=== PATIENT | female | born 1945 | race Caucasian/White ===

== ENCOUNTER 2016-07-22 10:47 | Emergency (ER) | payer MEDICARE, OTHER ==
[~2016-07-22] VITALS: Ht 162.6 cm; Wt 59.0 kg
[~2016-07-22 10:47] MED LIST: ALPR0.25 PO; ASPI325T PO; CALCCHW25 PO; DILT240C7 PO; HYDR-3534 PO; LIPI20TA OR; MULT-65 PO; NITR2.5C SL; RAMI10CA PO; RIVA10 PO; ZETI10TA5 OR; [UNRECOGNIZED DRUG - CODE] OR
[2016-07-22 10:48] VITALS: BP 173/73; PULSE 72; RESP 16; TEMP 97.9; O2SAT 96
[2016-07-22] MEDS ORDERED: NITR1SUB2 SL (11:15)
[2016-07-22] MEDS ORDERED: ZETI10TA5 PO (11:15)
[2016-07-22] MEDS ORDERED: ALPR0.25 PO (11:15)
[2016-07-22] MEDS ORDERED: DILT180C56 PO (11:15)
[2016-07-22] MEDS ORDERED: MULTTAB67 PO (11:15)
[2016-07-22] MEDS ORDERED: HYDR-3533 PO (11:15)
[2016-07-22] MEDS ORDERED: CALCCHW25 CHEW (11:15)
[2016-07-22] MEDS ORDERED: RAMI10CA PO (11:15)
[2016-07-22] MEDS ORDERED: ATOR20TA15 PO (11:15)
[2016-07-22] MEDS ORDERED: LACTCAP8 PO (11:15)
[2016-07-22] MEDS ORDERED: HYDR-3534 PO (11:15)
[2016-07-22] MEDS ORDERED: ASPI325T PO (11:15)
--- NOTE | 2016-07-22 11:35 | PD ---
HPI Chief Complaint: Pain: Acute or Chronic Time Seen by Provider: 11:31 Travel History International Travel<30 days: No Contact w/Intl Traveler<30days: No Traveled to known affect area: No History of Present Illness HPI 70-year-old female with a history of CAD presents to the emergency department for evaluation of right elbow pain for 4 days. Patient states that this past Wednesday she accidentally tripped over a step and landed on her right hip and right elbow. States that she was seen at [facility] immediately following the fall and had x-rays of her right knee, right hip and right elbow. States that she was told all of her x-rays were negative. States that she did have swelling in the right elbow but minimal pain. States that 2 days ago she started using her elbow more and the pain in the elbow worsened and has continued to be painful since then. States that she does still have swelling over the right elbow. States she has decreased range of motion in the right elbow. Pain is aggravated with movement and palpation. Denies any alleviating factors. States she has been taking Tylenol during the day for her pain and has taken one Lortab at night for her pain. She denies any numbness or tingling, weakness, fever, chills, nausea, vomiting, lightheadedness or dizziness. Denies anticoagulation. No other complaints. PFSH Past Medical History Hx Anticoagulant Therapy: Yes (xeralto) Cancer: Yes (breast) Cardiac Catheterization: Yes Cardiovascular Problems: Yes (open heart sx) High Cholesterol: Yes Chest Pain: Yes Coronary Artery Disease: Yes Respiratory: Yes (hx 4 rib fx L with pneumothorax) ?: Not Past Surgical History Cardiac Surgery: Yes (CABG x 5) Cholecystectomy: Yes Coronary Artery Bypass Graft: Yes Gynecologic Surgery: Yes (LUMPECTOMY) Hysterectomy: Yes Social History Alcohol Use: Yes (2 BHAVESH/DAILY) Tobacco Use: No Substance Use: No Allergies-Medications (Allergen,Severity, Reaction): Coded Allergies: Flexeril (Verified Adverse Reaction, Severe, states gets neuro symptoms, ) Reported Meds & Prescriptions Reported Meds & Active Scripts Active Reported Ramipril 10 Mg Cap 10 Mg PO DAILY Probiotic (Lactobacillus Acidophilus) 1 Cap Cap 1 Cap PO Nitroglycerin SL (Nitroglycerin) 0.3 Mg Subl Unknown Dose SL DIRECTED PRN ONE TABLET UNDER THE TONGUE NEEDED FOR CHEST PAIN, MAY REPEAT EVERY FIVE MINUTES FOR A TOTAL OF 3 DOSES OR CALL 911 IF NO RELIEF Multiple Vitamin 1 Tab 1 Tab PO DAILY Lortab (Hydrocodone-Acetaminophen) 7.5-325 Mg Tab 1 Tab PO Q4H PRN Zetia (Ezetimibe) 10 Mg Tab 10 Mg PO DAILY Diltiazem CD 24 HR 180 Mg Caper 180 Mg PO DAILY Calcium + D & K (Calcium-Vitamins D & K) 500-1,000-40 Mg-Unit-Mcg Chew 1 Tab CHEW BID Atorvastatin (Atorvastatin Calcium) 20 Mg Tab 20 Mg PO DAILY Aspirin 325 Mg Tab 325 Mg PO DAILY Alprazolam 0.25 Mg Tab 0.25 Mg PO DIRECTED PRN Review of Systems Except as stated in HPI: all other systems reviewed are Neg Physical Exam Narrative GENERAL: Well-nourished and well-developed pleasant female patient in no acute distress who is nontoxic appearing. SKIN: Warm and dry. HEAD: Normocephalic and atraumatic. EYES: No injection, drainage, or hyphema noted. PERRLA. EOMI. ENT: No nasal drainage noted. Oropharynx is clear. NECK: Supple and the trachea is midline. CARDIOVASCULAR: Regular rate and rhythm. RESPIRATORY: Breath sounds are equal bilaterally with no accessory muscle use, wheezing, rhonchi, or crackles. GASTROINTESTINAL: Abdomen is soft, non-tender, and nondistended. MUSCULOSKELETAL: Swelling noted over the right elbow with tenderness to palpation. Patient is able to flex and extend the elbow only about 10 in either direction. If she goes any further with range of motion she experiences pain. No obvious deformities, cyanosis, or ecchymosis is present throughout the upper and lower extremities. Patient has full range of motion without any signs of neurovascular compromise. Radial pulses are 2+ bilaterally. Sensation is intact. NEUROLOGICAL: Awake, alert, and oriented. Normal speech and gait. Cranial nerves are grossly intact. Data Data Last Documented VS Vital Signs Date Time Temp Pulse Resp B/P Pulse Ox O2 Delivery O2 Flow Rate FiO2 07/22/16 10:48 97.9 72 16 173/73 96 Room Air Orders Elbow, Complete (4 Vws) (07/22/16 11:22) Ct Elbow W/O Contrast (07/22/16 ) Splint Or Brace Apply/Monitor (07/22/16 13:21) MDM Medical Decision Making Medical Screen Exam Complete: Yes Emergency Medical Condition: Yes Differential Diagnosis Contusion versus fracture versus sprain versus bursitis Narrative Course 70-year-old female presents to the emergency department for evaluation of right elbow pain status post trip and fall that occurred 4 days ago. Patient is afebrile, vital signs are stable. She had x-rays done 4 days ago at another hospital and was told they were negative. Her pain and swelling has persisted prompting her for a return visit to the ED. We'll repeat x-ray imaging. If this is unremarkable the patient will be advised to follow up as an outpatient with her PCP or an orthopedist. X-ray of the right elbow shows mild soft tissue swelling and a few fragments. Radiology is reading this as a negative acute x-ray. Right upper extremity CT is negative for any acute abnormalities or fractures of the elbow, there are a few degenerative ossific fragments but no acute abnormalities. Discussed findings with the patient and family. She will be given a sling for comfort. I discussed with her that she needs to remove her arm from the sling and perform range of motion exercises. She is advised to take NSAIDs for the next several days. Discussed supportive of care. Advised follow-up with her PCP as needed. Patient verbalizes understanding and agreement with treatment plan. I discussed the case with my attending physician Dr. Lovelace who is aware of the patients history, physical examination findings, and treatment plan. Diagnosis Primary Impression: Right elbow pain Referrals: Primary Care Physician Patient Instructions: Elbow Sprain (ED), General Instructions Additional Instructions: Sling for one week. Remove arm from the sling multiple times throughout the day and perform full range of motion exercises Follow-up with your Primary Care Physician. Return to the ED for any acute worsening of symptoms. Med/Other Pt SpecificInfo: No Change to Meds Disposition: 01 DISCHARGE HOME Condition: Stable Letty Yanez July 22, 2016 11:35
--- NOTE | 2016-07-22 11:50 | RADRPT ---
EXAM DATE/TIME: 07/22/2016 11:48 [facility] COMPARISON: No previous studies available for comparison. INDICATIONS : Fell Wednesday landed on elbow, pain with any motion. MEDICAL HISTORY : None. SURGICAL HISTORY : None. ENCOUNTER: Initial ACUITY: 4 - 6 days PAIN SCORE: 9/10 LOCATION: Right elbow FINDINGS: Normal bone density. Mild soft tissue swelling posterior to elbow. No obvious fractures. No effusion. CONCLUSION: Mild soft tissue swelling. Cr Moore MD on July 22, 2016 at 11:47 Board Certified Radiologist. This report was verified electronically.
--- NOTE | 2016-07-22 13:04 | RADRPT ---
EXAM DATE/TIME: 07/22/2016 12:31 [facility] COMPARISON: ELBOW RIGHT COMPLETE (4 VWS), July 22, 2016, 11:48. INDICATIONS : Fell 5 days ago, still complaining of pain RADIATION DOSE: 19.93 CTDIvol (mGy) MEDICAL HISTORY : Cardiovascular disease. Carcinoma, breast. SURGICAL HISTORY : Cholecystectomy. ENCOUNTER: Initial ACUITY: 4 - 6 days PAIN SCALE: 7/10 LOCATION: Right elbow TECHNIQUE: Volumetric scanning of the elbow was performed. Using automated exposure control and adjustment of t he mA and/or kV according to patient size, radiation dose was kept as low as reasonably achievable to obtain optimal diagnostic quality images. FINDINGS: There are well-corticated tiny ossific densities are long lateral joint just proximal to the radiocap itellar articulation. Smooth ossific spur or fragment is present adjacent to the coronoid. There is s mall ossific density in the ulnar trochlear joint. None of these findings appear acute, rather likely sequela of old injuries and arthritic change. There is nothing to suggest acute bony injury. No join t effusion is present. Mineralization is normal. No destructive changes are present. CONCLUSION: No acute bony findings Nick Vasquez MD on July 22, 2016 at 12:57 Board Certified Radiologist. This report was verified electronically.
--- NOTE | 2016-07-22 13:17 | PD ---
Data Data Last Documented VS Vital Signs Date Time Temp Pulse Resp B/P Pulse Ox O2 Delivery O2 Flow Rate FiO2 07/22/16 10:48 97.9 72 16 173/73 96 Room Air Orders Elbow, Complete (4 Vws) (07/22/16 11:22) Ct Elbow W/O Contrast (07/22/16 ) MDM Supervised Visit with ROSHNI: Yes Narrative Course 70 year-old woman, fall about 5 days ago, right lateral elbow pain. Negative x- rays initially. She still having lateral elbow pain, was initially improved but now worsening again over the past several days. Here for repeat evaluation. She is tender over the lateral upper condyle but she doesn't appear to have a lateral epicondylitis. X-ray was negative. Repeat CT was done due to high suspicion for occult fracture. This was negative as well. Recommend outpatient follow-up expect gradual improvement. Harlan Lovelace MD July 22, 2016 13:17
== END 2016-07-22 13:41 | disposition home or self-care (01) ==
LOC: NEPD 10:47
DX: M25.521 Pain in right elbow (principal); I25.10 Atherosclerotic heart disease of native coronary artery without angina pectoris; E78.00 Pure hypercholesterolemia, unspecified; Z79.01 Long term (current) use of anticoagulants; Z95.1 Presence of aortocoronary bypass graft; W01.198D Fall on same level from slipping, tripping and stumbling with subsequent striking against other object, subsequent encounter
CPT/HCPCS: 73080; 73200; 99284

== ENCOUNTER 2016-08-01 10:40 | Emergency (ER) | payer MEDICARE, OTHER ==
[~2016-08-01] VITALS: Ht 162.6 cm; Wt 60.0 kg
[~2016-08-01 10:40] MED LIST changes: +ATOR20TA15 PO; +CALCCHW25 CHEW; -CALCCHW25 PO; +DILT180C56 PO; -DILT240C7 PO; +LACTCAP8 PO; -LIPI20TA OR; -MULT-65 PO; +MULTTAB67 PO; +NITR1SUB2 SL; -NITR2.5C SL; -RIVA10 PO; -ZETI10TA5 OR; +ZETI10TA5 PO; -[UNRECOGNIZED DRUG - CODE] OR
[2016-08-01 10:46] VITALS: BP 118/69; PULSE 85; RESP 15; TEMP 97.9; O2SAT 96
[2016-08-01] MEDS ORDERED: DILT0.05 PO (11:05)
[2016-08-01] MEDS ORDERED: LIPI20TA PO (11:05)
[2016-08-01] MEDS ORDERED: SODIUM CHLOR 0.9% 1000 ML INJ 1,000 ML IV SCH (11:23)
[2016-08-01] MEDS ORDERED: SODIUM CHLORIDE 0.9% FLUSH 10 ML FLUSH IV FLUSH PRN (11:30)
[2016-08-01] MEDS ORDERED: PANTOPRAZOLE SODIUM 40 MG VIAL IVP ONE (11:30)
[2016-08-01] MEDS ORDERED: FAMOTIDINE 20 MG/2 ML VIAL IV PUSH ONE (11:30)
[2016-08-01] MEDS ORDERED: DICYCLOMINE HCL 20 MG/2 ML VIAL IM ONE (11:30)
[2016-08-01] MEDS ORDERED: ONDANSETRON HCL 4 MG/2 ML VIAL IVP ONE (11:30)
[2016-08-01 12:00] VITALS: BP 122/72; PULSE 84; RESP 16; O2SAT 98
[2016-08-01 12:53] VITALS: BP 120/70; PULSE 84; RESP 16; O2SAT 98
[2016-08-01] MEDS ORDERED: ZOFR4TAB PO (13:06)
[2016-08-01] MEDS ORDERED: LEVS0.123 PO (13:06)
--- NOTE | 2016-08-01 13:06 | PD ---
HPI Chief Complaint: GI Complaint Time Seen by Provider: 11:23 Travel History International Travel<30 days: No Contact w/Intl Traveler<30days: No Traveled to known affect area: No History of Present Illness HPI Patient presents with complaints of nausea and vomiting since early in the morning. Denies any blood per emesis. Reports some slight improvement with onset of diarrhea on Wednesday morning. Denies any blood per stool. Reports some abdominal cramping. Taking fluids moderately well. Denies any new chest pain shortness of breath urinary or bowel symptoms. Positive sick contacts. No new rashes. PFSH Past Medical History Hx Anticoagulant Therapy: Yes (xeralto) Cancer: Yes (breast) Cardiac Catheterization: Yes Cardiovascular Problems: Yes (open heart sx) High Cholesterol: Yes Chest Pain: Yes Coronary Artery Disease: Yes Diminished Hearing: No Hypertension: Yes Respiratory: Yes (hx 4 rib fx L with pneumothorax) Tetanus Vaccination: > 5 Years ?: Not Past Surgical History Cardiac Surgery: Yes (CABG x 5) Cholecystectomy: Yes Coronary Artery Bypass Graft: Yes Gynecologic Surgery: Yes (LUMPECTOMY) Hysterectomy: Yes Social History Alcohol Use: Yes (2 BHAVESH/DAILY) Tobacco Use: No Substance Use: No Allergies-Medications (Allergen,Severity, Reaction): Coded Allergies: Flexeril (Verified Adverse Reaction, Severe, states gets neuro symptoms, ) Reported Meds & Prescriptions Reported Meds & Active Scripts Active Reported Lipitor (Atorvastatin Calcium) 20 Mg Tab 20 Mg PO HS Diltiazem ER 24 HR 180 Mg Oralia 180 Mg PO DAILY Ramipril 10 Mg Cap 10 Mg PO DAILY Probiotic (Lactobacillus Acidophilus) 1 Cap Cap 1 Cap PO Nitroglycerin SL (Nitroglycerin) 0.3 Mg Subl Unknown Dose SL DIRECTED PRN ONE TABLET UNDER THE TONGUE NEEDED FOR CHEST PAIN, MAY REPEAT EVERY FIVE MINUTES FOR A TOTAL OF 3 DOSES OR CALL 911 IF NO RELIEF Multiple Vitamin 1 Tab 1 Tab PO DAILY Zetia (Ezetimibe) 10 Mg Tab 10 Mg PO DAILY Calcium + D & K (Calcium-Vitamins D & K) 500-1,000-40 Mg-Unit-Mcg Chew 1 Tab CHEW BID Aspirin 325 Mg Tab 325 Mg PO DAILY Alprazolam 0.25 Mg Tab 0.25 Mg PO DIRECTED PRN Review of Systems General / Constitutional: No: Fever Eyes: No: Visual changes HENT: No: Headaches Cardiovascular: No: Chest Pain or Discomfort Respiratory: No: Shortness of Breath Gastrointestinal: Positive: Nausea, Vomiting, Diarrhea, No: Abdominal Pain Genitourinary: No: Dysuria Musculoskeletal: No: Pain Skin: No Rash Neurologic: No: Weakness Psychiatric: No: Depression Endocrine: No: Polydipsia Hematologic/Lymphatic: No: Easy Bruising Physical Exam Narrative GENERAL: Well-nourished, well-developed patient. SKIN: Focused skin assessment warm/dry. HEAD: Normocephalic. EYES: No scleral icterus. No injection or drainage. NECK: Supple, trachea midline. No JVD or lymphadenopathy. CARDIOVASCULAR: Regular rate and rhythm without murmurs, gallops, or rubs. RESPIRATORY: Breath sounds equal bilaterally. No accessory muscle use. GASTROINTESTINAL: Abdomen soft, non-tender, nondistended. MUSCULOSKELETAL: No cyanosis, or edema. BACK: Nontender without obvious deformity. No CVA tenderness. Data Data Last Documented VS Vital Signs Date Time Temp Pulse Resp B/P Pulse Ox O2 Delivery O2 Flow Rate FiO2 08/01/16 12:53 84 16 120/70 98 08/01/16 12:00 Room Air 08/01/16 10:46 97.9 Orders Iv Access Insert/Monitor (08/01/16 11:23) Ondansetron Inj (Zofran Inj) (08/01/16 11:30) Pantoprazole Inj (Protonix Inj) (08/01/16 11:30) Sodium Chlor 0.9% 1000 Ml Inj (Ns 1000 M (08/01/16 11:23) Sodium Chloride 0.9% Flush (Ns Flush) (08/01/16 11:30) Famotidine Inj (Pepcid Inj) (08/01/16 11:30) Dicyclomine Inj (Bentyl Inj) (08/01/16 11:30) MDM Medical Decision Making Medical Screen Exam Complete: Yes Emergency Medical Condition: Yes Differential Diagnosis Gastroenteritis, small bowel obstruction, colitis, diverticulitis Narrative Course Assessment and plan discussed with patient at bedside. Patient received anti- medic and antispasmodic with improvement of symptoms. Tolerated fluid challenge. Received IV fluids. Diagnosis Primary Impression: Gastroenteritis Patient Instructions: General Instructions Additional Instructions: Encouraged a high fiber bland BRAT diet. Encouraged fluids. Anti-emetic and antispasmodic as directed. Follow-up with PCP. Return to emergency room with any onset of new symptoms Med/Other Pt SpecificInfo: Prescription(s) given Scripts Hyoscyamine (Levsin)0.125 Mg Tab0.125 Mg PO Q4H PRN (abdominal spasms) #20 TAB Ref 0 Prov:Juice Stuart MD 08/01/16 Ondansetron (Zofran)4 Mg Tab4 Mg PO Q6HR PRN (NAUSEA OR VOMITING) #20 TAB Ref 0 Prov:Juice Stuart MD 08/01/16 Disposition: 01 DISCHARGE HOME Condition: Good Juice Stuart MD Aug 01, 2016 13:06
== END 2016-08-01 13:42 | disposition home or self-care (01) ==
LOC: PHED 10:40
DX: K52.9 Noninfective gastroenteritis and colitis, unspecified (principal); E78.00 Pure hypercholesterolemia, unspecified; I25.10 Atherosclerotic heart disease of native coronary artery without angina pectoris; I10 Essential (primary) hypertension; Z79.01 Long term (current) use of anticoagulants; Z85.3 Personal history of malignant neoplasm of breast; Z95.1 Presence of aortocoronary bypass graft
CPT/HCPCS: 96361; 96372; 96374; 96375; 99284; C9113; J0500; J2405; J7030